=== PATIENT | female | born 1955 | race Caucasian/White ===

== ENCOUNTER 2017-09-19 16:02 | Emergency (ER) | payer MEDICAID ==
[~2017-09-19] VITALS: Ht 167.6 cm; Wt 91.0 kg
[~2017-09-19 16:02] MED LIST: COROTSUS LEFT EAR; PRED50TA PO
[2017-09-19] MEDS ORDERED: CIPR10DR EACH EAR (16:30)
[2017-09-19 16:46] VITALS: BP 137/80
== END 2017-09-19 16:47 | disposition home or self-care (01) ==
LOC: ER 16:03
DX: H60.93 Unspecified otitis externa, bilateral (principal); Z95.1 Presence of aortocoronary bypass graft
CPT/HCPCS: 99283

== ENCOUNTER 2020-03-17 14:15 | Emergency (ER) | payer BC, MEDICAID ==
[~2020-03-17] VITALS: Ht 167.6 cm; Wt 90.0 kg
[~2020-03-17 14:15] MED LIST changes: +BUSP10TA11 PO; +CARB100T7 PO; +CLON0.1T PO; -COROTSUS LEFT EAR; +CYCL-394 PO; +GABA-532 PO; +OMEP40CA13 PO; -PRED50TA PO
[2020-03-17 14:29] VITALS: BP 130/101
[2020-03-17] MEDS ORDERED: proparacaine 0.5% ophthalmic drops 15ml LEFTEYE ONE (15:45)
[2020-03-17] MEDS ORDERED: SULF5DRO LEFTEYE (16:02)
== END 2020-03-17 16:36 | disposition home or self-care (01) ==
LOC: ER 14:16
DX: H10.12 Acute atopic conjunctivitis, left eye (principal); I25.10 Atherosclerotic heart disease of native coronary artery without angina pectoris; J44.9 Chronic obstructive pulmonary disease, unspecified; G89.29 Other chronic pain; F17.200 Nicotine dependence, unspecified, uncomplicated; Z98.61 Coronary angioplasty status; Z88.5 Allergy status to narcotic agent; Z88.8 Allergy status to other drugs, medicaments and biological substances; Z79.899 Other long term (current) drug therapy
CPT/HCPCS: 99283

== ENCOUNTER 2022-06-03 12:12 | Emergency (ER) | payer MEDICARE, MEDICAID ==
[~2022-06-03] VITALS: Ht 167.6 cm; Wt 103.6 kg
[~2022-06-03 12:12] MED LIST changes: -OMEP40CA13 PO; +OMEP40CA21 PO; +SULF5DRO LEFTEYE
[2022-06-03 12:24] VITALS: BP 148/61
[2022-06-03 16:33] LABS: BASOPHILS # (AUTO) 0.1 X10'3 (0-0.2); BASOPHILS % (AUTO) 0.5 % (0-1); EOSINOPHILS # (AUTO) 0.5 X10'3 (0-0.9); EOSINOPHILS % (AUTO) 4.1 % (0-6); HEMATOCRIT 38.5 % (35.0-45.0); HEMOGLOBIN 12.8 g/dl (12.0-16.0); LYMPHOCYTES % (AUTO) 17.3 % (21-51); MEAN CORPUSCULAR HEMOGLOBIN 29.8 PG (27.0-31.0); MEAN CORPUSCULAR HGB CONC 33.2 g/dL (33.0-36.5); MEAN CORPUSCULAR VOLUME 89.7 FL (78-98); MEAN PLATELET VOLUME 7.9 FL (7.4-10.4); MONOCYTES # (AUTO) 0.8 X10'3 (0-0.9); MONOCYTES % (AUTO) 6.8 % (2-12); NEUTROPHILS # (AUTO) 8.4 X10'3 (1.8-7.7); NEUTROPHILS % (AUTO) 71.3 % (42-75); PLATELET COUNT 353 X10'3 (140-440); RED BLOOD COUNT 4.29 X10'6 (4.20-5.60); RED CELL DISTRIBUTION WIDTH 14.2 % (11.5-14.5); WHITE BLOOD COUNT 11.8 X10'3 (4.5-11.0)
[2022-06-03 16:44] LABS: ALANINE AMINOTRANSFERASE 30 U/L (12-78); ALBUMIN 3.7 G/DL (3.4-5.0); ALKALINE PHOSPHATASE 90 IU/L (46-116); ANION GAP 6 (8-16); ASPARTATE AMINO TRANSFERASE 27 U/L (10-37); BILIRUBIN,TOTAL 0.4 MG/DL (0.1-1.0); BLOOD UREA NITROGEN 14 MG/DL (7-18); CALCIUM 9.7 MG/DL (8.5-10.1); CHLORIDE 101 MMOL/L (99-107); CREATININE 1.08 MG/DL (0.40-0.90); GLUCOSE 108 MG/DL (70-104); POTASSIUM 3.2 MMOL/L (3.5-5.1); SODIUM 139 MMOL/L (135-145); TOTAL CARBON DIOXIDE 31.7 MMOL/L (24-32); TOTAL PROTEIN 7.5 G/DL (6.4-8.2); eGFR 50 ML/MIN
[2022-06-03] MEDS ORDERED: POTASSIUM BICARB 20meq eff tab 20 MEQ TABLET.EFF PO ONE (16:50)
[2022-06-03] MEDS ORDERED: PRED20TA PO (16:58)
[2022-06-03] MEDS ORDERED: DOXYCYCLINE 100MG CAPSULE PO STA (17:00)
[2022-06-03] MEDS ORDERED: DOXY-411 PO (17:00)
== END 2022-06-03 17:31 | disposition home or self-care (01) ==
LOC: ER 12:13
DX: L25.9 Unspecified contact dermatitis, unspecified cause (principal); I25.10 Atherosclerotic heart disease of native coronary artery without angina pectoris; I50.9 Heart failure, unspecified; J45.909 Unspecified asthma, uncomplicated; J44.9 Chronic obstructive pulmonary disease, unspecified; Z86.73 Personal history of transient ischemic attack (TIA), and cerebral infarction without residual deficits; G89.29 Other chronic pain; Z98.890 Other specified postprocedural states; Z88.1 Allergy status to other antibiotic agents; Z88.5 Allergy status to narcotic agent; Z79.2 Long term (current) use of antibiotics; Z79.899 Other long term (current) drug therapy
CPT/HCPCS: 36415; 80053; 83880; 84484; 85025; 93005; 99284

== ENCOUNTER 2022-11-01 03:45 | Observation (INO) | payer MEDICARE, MEDICAID ==
[~2022-11-01] VITALS: Ht 165.1 cm; Wt 127.0 kg
[2022-11-01] VITALS (7 sets, daily range): BP systolic 107–158; BP diastolic 50–79
[2022-11-01] MEDS ORDERED: GABA600T13 PO (04:03)
[2022-11-01] MEDS ORDERED: HYDR25TA5 PO (04:05)
[2022-11-01] MEDS ORDERED: HYDR-3686 PO (04:05)
[2022-11-01] MEDS ORDERED: OLAN2.5T3 PO (04:06)
[2022-11-01] MEDS ORDERED: ASPI-1264 PO (04:06)
[2022-11-01] MEDS ORDERED: SERT25TA PO (04:07)
[2022-11-01] MEDS ORDERED: nitroGLYCERIN-Tridil 50MG/D5W 250 ML IV PRN (04:10)
[2022-11-01] MEDS: aspirin 81mg tab.chew PO ONE ×2 (04:18→04:19)
--- NOTE | 2022-11-01 04:19 | NUR ---
Patient reports she took TWO 325mg aspirin TWO hours prior to arrival. Ordered aspirin will be held.
[2022-11-01] MEDS: nitroGLYCERIN 0.4mg SUBLingual tab SL PRN ×3 (04:20→04:37)
--- NOTE | 2022-11-01 04:27 | NUR ---
Patient reports pain from 1 SL nitro from 05/02 to 04/01. BP now 117/81.
--- NOTE | 2022-11-01 04:35 | NUR ---
Patient reports 2nd nitro brought CP down to 6/10. BP remains stable at 127/79. Patient now reports headache.
[2022-11-01 04:41] LABS: BASOPHILS % (AUTO) 0.5 % (0-1); EOSINOPHILS # (AUTO) 0.4 X10'3 (0-0.9); EOSINOPHILS % (AUTO) 3.8 % (0-6); HEMATOCRIT 39.5 % (35.0-45.0); HEMOGLOBIN 12.7 g/dl (12.0-16.0); LYMPHOCYTES % (AUTO) 19.7 % (21-51); MEAN CORPUSCULAR HEMOGLOBIN 28.4 PG (27.0-31.0); MEAN CORPUSCULAR HGB CONC 32.1 g/dL (33.0-36.5); MEAN CORPUSCULAR VOLUME 88.7 FL (78-98); MEAN PLATELET VOLUME 8.1 FL (7.4-10.4); MONOCYTES # (AUTO) 0.9 X10'3 (0-0.9); MONOCYTES % (AUTO) 8.6 % (2-12); NEUTROPHILS # (AUTO) 6.7 X10'3 (1.8-7.7); NEUTROPHILS % (AUTO) 67.4 % (42-75); PLATELET COUNT 356 X10'3 (140-440); RED BLOOD COUNT 4.45 X10'6 (4.20-5.60); WHITE BLOOD COUNT 9.9 X10'3 (4.5-11.0)
--- NOTE | 2022-11-01 04:45 | NUR ---
Patient reports no chest pain following 3rd SL nitro. BP remains stable at 114/71
[2022-11-01] MEDS ORDERED: nitroGLYCERIN 0.4mg/hour patch TD ONE (04:50)
[2022-11-01 05:00] LABS: ALANINE AMINOTRANSFERASE 19 U/L (12-78); ALBUMIN 3.4 G/DL (3.4-5.0); ALKALINE PHOSPHATASE 81 IU/L (46-116); ANION GAP 10 (8-16); ASPARTATE AMINO TRANSFERASE 13 U/L (10-37); BILIRUBIN,TOTAL 0.3 MG/DL (0.1-1.0); BLOOD UREA NITROGEN 17 MG/DL (7-18); CALCIUM 9.2 MG/DL (8.5-10.1); CHLORIDE 105 MMOL/L (99-107); GLUCOSE 114 MG/DL (70-104); POTASSIUM 3.6 MMOL/L (3.5-5.1); SODIUM 143 MMOL/L (135-145); TOTAL PROTEIN 6.9 G/DL (6.4-8.2); eGFR 55 ML/MIN
[2022-11-01] MEDS ORDERED: normal saline 1000ml 1,000 ML IV SCH (06:10)
[2022-11-01] MEDS ORDERED: PERFLUTREN PROTEIN-A MICROSPHR (Optison) 0.22 MG/ML 3ML VIAL IV ONE (06:10)
[2022-11-01] MEDS ORDERED: potassium Cl 40MEQ/1/2NS 520ml 520 ML IV PRN (06:10)
[2022-11-01] MEDS ORDERED: ondansetron/PF 4mg/2ml inj IV PRN (06:10)
[2022-11-01] MEDS ORDERED: magnesium Cl slow-release 64mg tablet PO PRN (06:10)
[2022-11-01] MEDS ORDERED: potassium Cl 20 mEq SR tablet PO PRN ×2 (06:10)
[2022-11-01] MEDS ORDERED: magnesium 4gm in 100ml NS 100 ML IV PRN (06:10)
[2022-11-01] MEDS ORDERED: acetaminophen 325mg tablet PO PRN (06:10)
[2022-11-01 06:27] LABS: MAGNESIUM 1.9 MG/DL (1.5-2.4)
[2022-11-01] MEDS ORDERED: K and/or MAG REPLACEMENT MC SCH (08:00)
[2022-11-01] MEDS ORDERED: aminophylline 250mg/10ml inj. IV PRN (08:40)
[2022-11-01] MEDS ORDERED: regadenoson 0.4mg/5ml syringe IV PRN (08:40)
[2022-11-01] MEDS ORDERED: nitroGLYCERIN 0.4mg SUBLingual tab SL PRN (08:40)
[2022-11-01] MEDS ORDERED: metoprolol tartrate 1mg/ml inj IV PRN (08:40)
[2022-11-01 08:56] LABS: CHOL/HDL RATIO 4.4 (0.00-4.99); CHOLESTEROL 240 MG/DL (0-200); HDL CHOLESTEROL 55 MG/DL (35-60); LDL CHOLESTEROL 136 MG/DL (50-100); TRIGLYCERIDES 205 MG/DL (20-135)
--- NOTE | 2022-11-01 09:59 | NUR ---
Pt just went to [facility] Dept for stress test
[2022-11-01] MEDS ORDERED: hydrOXYzine 25 MG tablet PO PRN (11:35)
[2022-11-01] MEDS ORDERED: sertraline 50mg tablet PO SCH (11:35)
--- NOTE | 2022-11-01 14:39 | NUR ---
Patient at bedside reported that she took the following medications (home meds) brought from home: Olanzapine 5 mg Metoprolol 25 mg Hydroxyzine 25 mg Lisinopril 5 mg Gabapentin 600 mg Banophen (Benadryl) Patient's son reported "she need to take those medications, she already missed her dose last night!. Patient's son and patient notified that it is against our hospital policy to self medicate. They both verbalized understanding
[2022-11-01] MEDS ORDERED: gabapentin 300mg capsule PO SCH (16:00)
--- NOTE | 2022-11-01 16:49 | NUR ---
[facility] PAGED PER PT'S RIDE IS HERE AND PT IS WANTING TO AMA.
--- NOTE | 2022-11-01 17:01 | NUR ---
Paged Dr. Chavez: PATRICIA Nieto RN RE: Jenny Monique. Just FYI patient leaving AMA,.
[2022-11-01] MEDS ORDERED: OLANZAPINE 5 MG TABLET PO SCH (20:00)
[2022-11-02] MEDS ORDERED: HYDROchlorothiazide 25mg tablet PO SCH (08:00)
[2022-11-02] MEDS ORDERED: aspirin 325mg tablet PO SCH (08:00)
== END 2022-11-01 17:10 | disposition left against medical advice (07) ==
LOC: ER 03:46 → ED HOLD 06:12
PROVIDERS: ADMIT Internal Medicine; ATTEND Family Medicine
DX: R07.89 Other chest pain (principal); I25.110 Atherosclerotic heart disease of native coronary artery with unstable angina pectoris; I11.0 Hypertensive heart disease with heart failure; I50.9 Heart failure, unspecified; J44.9 Chronic obstructive pulmonary disease, unspecified; M79.7 Fibromyalgia; M06.9 Rheumatoid arthritis, unspecified; E66.01 Morbid (severe) obesity due to excess calories; F32.A Depression, unspecified; F17.210 Nicotine dependence, cigarettes, uncomplicated; Z86.73 Personal history of transient ischemic attack (TIA), and cerebral infarction without residual deficits; Z90.710 Acquired absence of both cervix and uterus; Z79.899 Other long term (current) drug therapy
CPT/HCPCS: 36415; 71045; 71250; 78452; 80053; 80061; 83735; 84484; 85025; 93005; 93017; 93306; 96360; 96361; 99285; A9500; G0378; J2785; J7030